=== PATIENT | male | born 2000 | race Caucasian/White ===

== ENCOUNTER 2021-07-19 01:50 | Emergency (ER) | payer OTHER ==
[~2021-07-19] VITALS: Ht 188 cm; Wt 145.2 kg
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
[2021-07-19] MEDS ORDERED: MOBIC15 MG PO (03:09)
[2021-07-19 03:17] VITALS: BP 174/75
== END 2021-07-19 03:18 | disposition home or self-care (01) ==
LOC: ER 01:50
DX: S76.912A Strain of unspecified muscles, fascia and tendons at thigh level, left thigh, initial encounter (principal); F32.9 Major depressive disorder, single episode, unspecified; Z90.89 Acquired absence of other organs; V19.9XXA Pedal cyclist (driver) (passenger) injured in unspecified traffic accident, initial encounter; Y93.89 Activity, other specified; Y92.89 Other specified places as the place of occurrence of the external cause; Y99.8 Other external cause status